=== PATIENT | male | born 1975 | race Asian ===

== ENCOUNTER 2019-07-22 12:00 | Observation (INO) ==
--- NOTE | 2019-07-22 15:34 | Acute Care Surgery H&P ---
Date of Encounter: 07/22/19 Time of Encounter: 15:30 Assessment and Plan (1) Cholelithiasis with acute cholecystitis without biliary obstruction Current Visit: Yes Status: Acute The assessment and plan as outlined above was discussed with the patient and/or family members who expressed understanding and agreement. All questions were answered. The patient has cholelithiasis and acute biliary colic that is recalcitrant. His elevated white blood cell count is evidence of acute cholecystitis. I have recommended laparoscopic cholecystectomy. The patient asked appropriate questions and wished to proceed. Qualifiers: Cholelithiasis location: gallbladder Qualified Code(s): K80.00 - Calculus of gallbladder with acute cholecystitis without obstruction History of Present Illness Chief complaint: Epigastric pain HPI: Mr. Gaitan is a 44 year old male Who experienced epigastric pain 1 week ago. He had a complete workup including hematology testing which was normal and liver function testing which was normal. He did well and had relief of his pain for several days. He then developed worsening abdominal pain this morning followed by nausea and vomiting. Again his pain was epigastric radiating through to his back. The pain is continuous in nature. A CAT scan of the abdomen that demonstrated cholelithiasis. White blood cell count was slightly elevated at 14,000. He is transferred to [facility] for surgical treatment of what appears to be acute cholecystitis with cholelithiasis. The patient is currently nauseated and did have vomiting this morning. I discussed the risks and benefits of laparoscopic cholecystectomy, cholangiogram. He understands and wishes to proceed. Past Med Surg Social Fam HX - Past Medical History Medical history: no medical history Additional medical history: Patient reports poss. Appendectomy as a child Psychiatric history: no psych history - Past Surgical History Surgical History: no surgical history - Social History Smoking Status: Never smoker Smokeless Tobacco Status: No Alcohol use: none Drug use: none - Family History Mother Living Status: Age at : 60 Cause of : unknown Father Living Status: Age at : 60 Medications and Allergies Omeprazole 20 mg PO DAILY #14 tablet. 07/15/19 [Rx] Promethazine [Phenergan] 25 mg PO Q6HR PRN #10 tablet 07/15/19 [Rx] Sucralfate [Carafate] 1 gm PO QID #400 ml 07/15/19 [Rx] Allergy/AdvReac Type Severity Reaction Status Date / Time No Known Allergies Allergy Verified 07/15/19 14:25 Review of Systems All systems PM: The remainder of the systems were reviewed and are negative General Surgery Exam Initial Vital Signs Temp Pulse Resp BP Pulse Ox 98.8 F 73 16 177/112 98 07/22/19 14:43 07/22/19 14:43 07/22/19 14:43 07/22/19 14:43 07/22/19 14:43 - General physical appearance well developed, well nourished, moderate distress, moderate pain - Neck no masses, no bruits, trachea midline, no lymphadectomy, no venous distension - Respiratory normal expansion, normal respiratory effort, clear to auscultation - Cardiovascular Cardiovascular exam: Present: RRR, no murmurs/rubs/gallops - Abdomen Abdomen general surgery: Present: bowel sounds present, tender Abdominal Tenderness: Present: epigastic, RUQ Hernia: Present: none - Integumentary Integumentary general surgery: Present: warm and dry, no abnormal pigmentation, other (No evidence of jaundice) - Neurologic Present: CN 2-12 grossly intact, normal coordination, normal sensation - Psychiatric Psychiatric general surgery: Present: appropriate, oriented to person, oriented to place, oriented to time, speech is normal, memory intact Results - Labs All other labs normal. - Imaging CT scan - abdomen: image reviewed (I personally reviewed the CAT scan of the abdomen. The patient does have cholelithiasis with minimal inflammatory changes)
[2019-07-22] MEDS ORDERED: CefOXitin 1,000 MG VIAL ONE (15:39)
[2019-07-22] MEDS ORDERED: Ondansetron 4 MG/2 ML VIAL IVP PRN ×2 (15:39→19:33)
[2019-07-22] MEDS ORDERED: *HR* FentaNYL (PF) 100 MCG/2 ML VIAL ONE ×2 (15:42→16:29)
[2019-07-22] MEDS ORDERED: *HR* Midazolam HCl 2 MG/2 ML VIAL ONE (15:42)
[2019-07-22] MEDS ORDERED: Dexamethasone 4 MG/ML VIAL ONE (15:43)
[2019-07-22] MEDS ORDERED: *HR* Rocuronium Bromide 50 MG/5 ML VIAL ONE (15:43)
[2019-07-22] MEDS ORDERED: Lidocaine -MPF 2% 2 ML VIAL ONE (15:43)
[2019-07-22] MEDS ORDERED: 0.9 % Sodium Chloride 1,000 ML IVC SCH ×2 (15:45→19:33)
[2019-07-22] MEDS ORDERED: *HR* Propofol 200 MG/20 ML VIAL IVP ONE (15:45)
[2019-07-22] MEDS ORDERED: Lidocaine HCL 4 ML Topical Solution (Laryng-O-Jet Kit Sterile Pak) TP ONE (15:46)
[2019-07-22] MEDS ORDERED: Isovue-300 50 ML VIAL ONE (15:52)
--- NOTE | 2019-07-22 16:04 | Anesthesia Evaluation PreOp ---
Date of Encounter: 07/22/19 Time of Encounter: 16:02 - Past History Planned Operation: Laparoscopic Cholecystectomy Cardiac History: Denies any Significant Hx Pulmonary History: Denies Any Significant HX, Snore EVAPORATOR SUPERVISOR History: Denies Any Significant HX Other Medical History: Denies Any Significant HX Anesthesia History: No Prior Anesthetic Complications, Past Anesthesia Alcohol Use: none Drug use: none Medications and Allergies Omeprazole 20 mg PO DAILY #14 tablet. 07/15/19 [Rx] Promethazine [Phenergan] 25 mg PO Q6HR PRN #10 tablet 07/15/19 [Rx] Sucralfate [Carafate] 1 gm PO QID #400 ml 07/15/19 [Rx] Allergy/AdvReac Type Severity Reaction Status Date / Time No Known Allergies Allergy Verified 07/15/19 14:25 - Meds/Allergy Pre-op Review Medications Reviewed: Yes Allergies Reviewed: Yes Beta Blockers on Current Med List: No Anesthesia Results - Labs Laboratory Tests 07/22/19 07/22/19 10:37 10:37 WBC 14.0 H Hgb 15.8 Hct 45.5 Plt Count 228 Sodium 137 Potassium 3.6 BUN 13 Creatinine 0.85 - Imaging EKG: report reviewed (07/22/2019 Sinus rhythm Abnormal R-wave progression, early transition) Anesthesia Exam Vital Signs/O2 Sat, Most Current Temp Pulse Resp BP Pulse Ox 98.8 F 73 16 177/112 98 07/22/19 14:43 07/22/19 14:43 07/22/19 14:43 07/22/19 14:43 07/22/19 14:43 Height: 5'4''/1.63m Weight: 147 lbs/66.7 kg NPO (# of Hours): 8 Pain Scale: 4 (abdomen) Pain Scale Used: Numeric (1 - 10) - HEENT Pupil (Motor): EOMI Mallampati: III Teeth: Normal Oral Opening: Greater than 3 - EVAPORATOR SUPERVISOR LOC: Oriented EVAPORATOR SUPERVISOR Motor: Normal RUE, Normal LUE, Normal RLE, Normal LLE, Normal Face EVAPORATOR SUPERVISOR Sensory: Normal: RUE, LUE, RLE, LLE, Face - Cardiac Rhythm: Regular Murmur: None - Pulmonary Breath Sounds: bilateral Clear Respiratory Effort: Symmetrical Anesthesia Assess/Plan ASA Score: 1 Level of consciousness: Cooperative, Oriented, Tranquil Anesthetic Plan: General Monitoring Plan: Standard Monitors Recovery Plan: PACU
[2019-07-22] MEDS ORDERED: *HR* HYDROmorphone (PF) 1 MG/ML SYRINGE IVP PRN (16:11)
[2019-07-22] MEDS ORDERED: CefOXitin 2,000 MG VIAL ONE (16:17)
[2019-07-22] MEDS ORDERED: *HR* PHENYLEPHRINE 1,000 MCG/10 ML SYRINGE IVP ONE (16:33)
[2019-07-22] MEDS ORDERED: *HR* HYDROMORPHONE 2 MG/ML VIAL ONE (16:48)
[2019-07-22] MEDS ORDERED: Acetaminophen IV 1,000 MG/100 ML INFUS..BTL ONE (17:01)
[2019-07-22] MEDS ORDERED: Ketorolac 30 MG/ML VIAL ONE (17:05)
[2019-07-22] MEDS ORDERED: Neostigmine Methylsulfate 3 MG/3 ML SYRINGE ONE (17:13)
--- NOTE | 2019-07-22 17:21 | Operative Note ---
Date of procedure: 07/22/19 Pre-op diagnosis: Cholelithiasis and acute cholecystitis Post-op diagnosis: same Procedure: Laparoscopic cholecystectomy Anesthesia: JOSE LUIS Surgeon: Mikey Stephen Was there an health assistant present: No Estimated blood loss (cc): 10 Specimen: Gallbladder and contents Condition: stable Disposition: PACU Procedure in Detail: Laparoscopic cholecystectomy Operative procedure: after informed consent and appropriate patient identification, the patient was taken to the major operating suite and placed supine position and given adequate general endotracheal anesthesia. The abdomen was prepped and draped in sterile fashion utilizing ChloraPrep standard draping techniques. Timeout was taken and the patient was identified. I made a vertical midline incision below the umbilicus and dissected down to level of fascia. I placed 2 traction stitches of 0 vicryl in the midline fascia and the abdominal cavity was entered visually. A Jones trocar was placed in the abdomen and the abdomen was insufflated to 15 mmHg pressure CO2. The gallbladder was visualized. I placemed an 11 port in the subxiphoid area and two 5 mm ports in the subcostal area. The gallbladder was acutely obstructed and was decompressed with a decompression needle with suctioning of the liquid gallbladder contents. The gallbladder was grasped and elevated. A variety of blunt and sharp dissection techniques were used to isolate the cystic duct and cystic artery. The cystic artery was controlled with 2 surgical clips proximally and one distally and it was divided. I placed a surgical clip on the neck of the gallbladder and attempted to perform a small duct opening in the cystic duct. The cystic duct was too fragile and divided into 2 portions. I was able to identify the proximal cystic duct. The cystic duct was controlled with 2 surgical clips proximally. The gallbladder was removed from the gallbladder fossae using electrocautery. The gallbladder was removed from the abdomen through the #11 port site. I replaced the #11 port and irrigated with copious amounts of antibiotic containing solution. There was no evidence of bleeding or bile leak. All trochars were removed. Fascia was closed with 0 Vicryl and the skin with 2-0 and 4-0 Vicryl. He tolerated the procedure well and was transferred to recovery in stable condition
[2019-07-22] MEDS ORDERED: Naloxone 0.4 MG/ML INJ ONE (17:37)
[2019-07-22] MEDS ORDERED: *HR* Promethazine 25 MG/ML VIAL ONE (18:14)
[2019-07-22] MEDS ORDERED: *HR* Promethazine 25 MG/ML VIAL IVP PRN (18:18)
[2019-07-22] MEDS ORDERED: *HR* Labetalol 20 MG/4 ML SYRINGE IVP ONE (18:25)
[2019-07-22] MEDS: *HR* Labetalol 20 MG/4 ML SYRINGE IVP PRN ×3 (18:30→18:57)
--- NOTE | 2019-07-22 19:31 | Anesthesia Evaluation Post Op ---
Date of Encounter: 07/22/19 Time of Encounter: 19:30 - Vital Signs Vital Signs: Vital Signs/O2 Sat/Glucose, Most Current Temp Pulse Resp BP Pulse Ox 07/22/19 19:19 98.2 F 92 12 128/94 100 07/22/19 19:09 97.7 F 92 12 141/106 97 07/22/19 18:59 80 14 118/93 96 07/22/19 18:52 154/103 07/22/19 18:49 98.3 F 80 14 146/115 99 07/22/19 18:39 86 16 162/118 99 07/22/19 18:29 82 18 162/88 100 07/22/19 18:19 98.8 F 96 10 166/120 100 07/22/19 18:10 88 16 157/102 100 07/22/19 17:59 90 14 154/104 100 07/22/19 17:49 97.3 F L 88 14 153/107 100 - Lungs Lungs: Clear Ascult./Percussion - Airway Airway: Non-obstructed - Cardiovascular Regular Rate - Mental Status Mental Status: Alert & Oriented, Answers Appropriately - Pain Pain Scale: 1 - Nausea Vomiting Nausea Vomiting: Not Present - Hydration Hydration: Ice chips, Able to void - Discharge PostOp Status: Transfer Patient to floor
[2019-07-22] MEDS: *HR* OxyCODONE/APAP 10/325 TABLET PO PRN (22:24)
[2019-07-23] MEDS: cefOXitin 2,000 MG in Water for inj. (sterile) 20 ML IVP SCH ×2 (00:23→08:41)
[2019-07-23] MEDS: *HR* OxyCODONE/APAP 10/325 TABLET PO PRN ×2 (04:10→08:42)
[2019-07-23] MEDS ORDERED: Ibuprofen 800 MG TABLET PO STA (08:12)
--- NOTE | 2019-07-23 08:18 | Discharge Summary ---
<Li Townsend L - Last Filed: 07/23/19 08:11> Orders not resulted at time of discharge: Pending orders 07/22/19 18:02 Surgical Pathology [PTH] Routine Date of Encounter: 07/23/19 Time of Encounter: 08:11 - Discharge Diagnosis (1) Cholelithiasis with acute cholecystitis without biliary obstruction Priority: Primary Status: Resolved Qualifiers: Cholelithiasis location: gallbladder Qualified Code(s): K80.00 - Calculus of gallbladder with acute cholecystitis without obstruction General Surgery Exam Initial Vital Signs Temp Pulse Resp BP Pulse Ox 98.8 F 73 16 177/112 98 07/22/19 14:43 07/22/19 14:43 07/22/19 14:43 07/22/19 14:43 07/22/19 14:43 Vital Signs Temp Pulse Resp BP Pulse Ox 07/23/19 03:12 98.3 F 108 16 90/55 98 07/23/19 01:10 105 90/56 95 07/22/19 23:34 108 97/52 95 07/22/19 22:35 114 105/71 96 07/22/19 21:34 104/74 95 07/22/19 21:04 111 106/72 91 07/22/19 20:34 111 107/72 89 07/22/19 19:30 2 07/22/19 19:19 98.2 F 92 12 128/94 100 07/22/19 19:09 97.7 F 92 12 141/106 97 07/22/19 18:59 80 14 118/93 96 07/22/19 18:52 154/103 07/22/19 18:49 98.3 F 80 14 146/115 99 07/22/19 18:39 86 16 162/118 99 07/22/19 18:29 82 18 162/88 100 07/22/19 18:19 98.8 F 96 10 166/120 100 07/22/19 18:10 88 16 157/102 100 07/22/19 17:59 90 14 154/104 100 07/22/19 17:49 97.3 F L 88 14 153/107 100 07/22/19 14:43 98.8 F 73 16 177/112 98 Intake and Output 07/22/19 07/23/19 07/23/19 23:59 07:59 15:59 Intake Total / 20 Output Total 350 / 350 350 / 350 Balance -350 / -350 -330 / -330 Intake: IV Fluids / Mefoxin 2,000 MG In Water for 20 20 inj. (sterile) 20 ML @ 300 mls/ hr IVP Q8HR [facility] Rx#:[id number] Output: Urine 350 / 350 350 / 350 VITAL SIGNS: Reviewed. See [facility] GENERAL: In no apparent distress. HEENT: Normocephalic, atraumatic, pupils are equal and reactive, extraocular motions intact, oropharynx is pink and moist, there is no neck adenopathy or JVD noted. CHEST/RESPIRATORY: The thorax is free from signs of trauma. Lung sounds: clear to auscultation, normal respiratory effort CARDIAC: Regular rate and rhythm. Normal S1 and S2, without murmurs, gallops, or rubs. VASCULAR: No Edema. 2+ peripheral pulses. ABDOMEN: soft, expected postoperative tenderness, active bowel sounds INCISION: Surgical incision is clean, dry, and intact. There are no signs of cellulitis or infection noted. MUSCULOSKELETAL: Good range of motion of all major joints. Extremities without clubbing, cyanosis or edema. NEUROLOGIC EXAM: Alert and oriented x 3. Speech normal. Follows commands. PSYCHIATRIC: Mood normal. SKIN: No rash or lesions. - Hospital Course Hospital course: Mr. Gaitan is a 44 year old male who presented on and was taken to the operating room on 07/22/2019 where he underwent a laparoscopic cholecystectomy for acute cholecystitis. His postoperative course has been uncomplicated. He is ambulating avoiding without difficulty, tolerating a diet without nausea or vomiting, vital signs are stable, and he is afebrile. We will begin discharge planning to home with a follow-up in the office in approximately 2 weeks. - Time Spent with Patient Total time spent providing and/or coordinating discharge services: - Discharge Medications Prescriptions: New Docusate Sodium [Colace] 100 mg PO BID PRN #30 capsule PRN Reason: Contstipation Ibuprofen 800 mg PO Q8H PRN #30 tablet PRN Reason: Postsurgical pain OxyCODONE/APAP 5/325 [Percocet 5/325 MG] 1 each PO Q6HR PRN 5 Days #20 tablet PRN Reason: Pain Ondansetron ODT [Zofran ODT] 4 mg SL Q4HR PRN #15 tab.rapdis PRN Reason: Postsurgical nausea Continued Sucralfate [Carafate] 1 gm PO QID #400 ml Omeprazole 20 mg PO DAILY #14 tablet. Promethazine [Phenergan] 25 mg PO Q6HR PRN #10 tablet PRN Reason: Nausea Home Medications: Omeprazole 20 mg PO DAILY #14 tablet. 07/15/19 [Rx] Promethazine [Phenergan] 25 mg PO Q6HR PRN #10 tablet 07/15/19 [Rx] Sucralfate [Carafate] 1 gm PO QID #400 ml 07/15/19 [Rx] Docusate Sodium [Colace] 100 mg PO BID PRN #30 capsule 07/23/19 [Rx] Ibuprofen 800 mg PO Q8H PRN #30 tablet 07/23/19 [Rx] Ondansetron ODT [Zofran ODT] 4 mg SL Q4HR PRN #15 tab.rapdis 07/23/19 [Rx] OxyCODONE/APAP 5/325 [Percocet 5/325 MG] 1 each PO Q6HR PRN 5 Days #20 tablet 07/23/19 [Rx] Allergies/Adverse Reactions: Allergy/AdvReac Type Severity Reaction Status Date / Time No Known Allergies Allergy Verified 07/15/19 14:25 Date of admission: 07/22/19 14:22 Primary care physician: PCP NONE Discharging clinician: Cedric Peralta (Lizandro Townsend APRN-JOANN) Anticipated date of discharge: 07/23/19 - Patient Status Disposition: Home, Self-Care Functional capacity at discharge: independent ambulation Overall status at discharge: patient is progressing back to baseline - Discharge Instructions Instructions: Ibuprofen (By mouth), Oxycodone/Acetaminophen (By mouth), Ondansetron (By mouth), Docusate (Rectal), Laparoscopic Cholecystectomy (DC) Follow Up With: NONE,PCP [Primary Care Provider] - Li Townsend SUBSTANCE ABUSE SERVICES DIRECTOR [Advanced Practice Nurse] - 08/06/19 2:45 pm Forms: Inpatient Work/School Release Additional Instructions: General Surgical Discharge Instructions 1. No pushing, pulling, or lifting greater than 15 lbs for 4 weeks. 2. You may remove your dressings and shower beginning today, but no tub baths, soaking, or swimming for 2 weeks. 3. No driving for one weeks unless otherwise specified and then you may resume driving when you are off narcotics and are safe to react in a car. 4. Take ibuprofen every 8 hours and apply ice 20 minutes every hour for discomfort. If this does not relieve discomfort, you may take the as needed Percocet. Eat a small snack with pain medication as this will help reduce the risk of nausea. Take narcotics as directed. Do not take more narcotics then directed and do not share your narcotics with any other person. Do not drink alcohol while on narcotics. You can take the Zofran/ondansetron if needed for nausea or with a dose of narcotics to prevent nausea. 5. Take stool softeners (Colace) or a water based laxative (Miralax) while taking narcotics. You may hold for loose stools. 6. Report any fevers greater than 100.5F, increase abdominal discomfort, drainage that looks like pus, increased redness or pain at the surgical site, or any vomiting. 7. Report any pain in the calves, shortness of breath, or rapid heartbeat. 8. Follow-up in the office as directed. - Diet and Activity Activity: increase activity as tolerated, return to work once cleared by your PCP/specialist (If lifting restrictions of 15 lbs can be accommodated, can return to work on Monday07/30/2019 otherwise return to work to be determined follow-up visit) Diet: advance to your usual diet <Cedric Mon F - Last Filed: 07/23/19 14:10> Orders not resulted at time of discharge: Pending orders 07/22/19 18:02 Surgical Pathology [PTH] Routine Date of Encounter: 07/23/19 General Surgery Exam Initial Vital Signs Temp Pulse Resp BP Pulse Ox 98.8 F 73 16 177/112 98 07/22/19 14:43 07/22/19 14:43 07/22/19 14:43 07/22/19 14:43 07/22/19 14:43 - Hospital Course Hospital course: Mr. Gaitan is a 44 year old male - Time Spent with Patient Total time spent providing and/or coordinating discharge services: Date of admission: 07/22/19 14:22 Primary care physician: PCP NONE - Attending Attestation I examined this patient and my medical decision-making was reviewed with the SUBSTANCE ABUSE SERVICES DIRECTOR. I agree with the documented findings, disposition and treatment plan as described to the extent set forth below. POD#1 Lap mike. Pt tolerating diet. Pain controlled. Ambulating and voiding without problems. Feels much better. DC home today. F/U per DC plan.
[2019-07-23 08:30] VITALS: BP 114/77
== END 2019-07-23 10:58 | disposition home or self-care (01) ==
LOC: 3BNU
PROVIDERS: ADMIT Surgery; ATTEND Surgery